=== PATIENT | female | born 1990 | race Caucasian/White ===

== ENCOUNTER 2017-09-29 07:51 | Inpatient (IN) | payer OTHER ==
[~2017-09-29] VITALS: Ht 160 cm; Wt 126.4 kg
[2017-09-29] MEDS ORDERED: LACTATED RINGER'S 1000ML 1,000 ML IV PRN (08:28)
[2017-09-29] MEDS ORDERED: LACTATED RINGER'S 1000ML 1,000 ML IV SCH ×2 (08:28→20:00)
[2017-09-29] MEDS ORDERED: DINOPROSTONE 10 MG INSERT PV ONE (08:30)
[2017-09-29] MEDS ORDERED: PENICILLIN G POTASSIUM IV 6 MU in DEXTROSE 5% 250ML 250 ML IV ONE (08:30)
[2017-09-29] MEDS ORDERED: PATIENT'S ALLERGY INFO NEEDS ENTERED SCH (08:45)
--- NOTE | 2017-09-29 08:54 | HISTORY & PHYSICAL EXAMINATION ---
DATE OF ADMISSION: 09/29/2017 CHIEF COMPLAINT: Scheduled induction of labor at term. HISTORY OF PRESENT ILLNESS: The patient is a 27-year-old G1, P0 at 39 weeks and 4 days of gestation who is presenting for scheduled induction of labor at term as recommended by maternal medicine due to class 3 obesity. She feels well. Denies headache, change in her vision, nausea, vomiting, epigastric or right upper quadrant pain. The patient denies fever, chills, chest pain, shortness of breath. The patient has been feeling irregular mild contractions for the last 2 weeks and cramps for the last 3 days, but they have not been painful and her cervix was found to be fingertip in the office and scheduled for induction for today. The patient denies leakage of fluid or vaginal bleeding. She reports good movements. Her has been complicated by: 1. Class 3 obesity, BMI 46 at new OB visit and delivery recommended by [facility] by MF. 2. GBS positive. PAST MEDICAL HISTORY: As above. The patient denies any other medical problems. She has a history of cardiac murmur as a child and she has seen cardiology and her echocardiogram was normal. No further workup or treatment recommended. PAST SURGICAL HISTORY: Tonsillectomy and cholecystectomy. SOCIAL HISTORY: The patient denies smoking, alcohol or drug use. GYNECOLOGIC HISTORY: The patient denies any history of STDs including Chlamydia, gonorrhea, herpes and this is her first . MEDICATIONS: vitamins and Tums as needed. ALLERGIES: CLARITHROMYCIN CAUSES NAUSEA, VOMITING. LABORATORIES: Blood type is B positive, antibody screen negative, hepatitis C antibody negative, rubella titer negative, HIV nonreactive, RPR nonreactive, hepatitis B surface antigen negative. H&H was 37. Platelets 330. Her hemoglobin A1c was 4.9. 24-hour urine protein was 153. Earlier Glucola was elevated at 153 mg/dL and 3-hour OGGT was within single abnormal level. Her repeat 3 hour OGGT at 28 weeks was negative. Repeat H&H was , platelets 230 and her GBS culture was positive on August 31. PHYSICAL EXAMINATION: BP: 137/93, Temp: 37.6 C, R: 20, Pulse: 90 GENERAL: The patient is alert, oriented x3, not in acute distress. CARDIOVASCULAR SYSTEM: S1, S2, RRR. LUNGS: Clear to auscultation bilaterally. ABDOMEN: Soft, gravid, no epigastric or right upper quadrant tenderness. EXTREMITIES: Nontender, trace pretibial and ankle edema. Reflexes 1+ and no clonus. Bedside ultrasound confirmed cephalic presentation. heart rate 140s. PELVIC: Cervix is fingertip, 50%, -3. heart rate 140s, category I. Suarez mild irregular contractions every 3-5 minutes. ASSESSMENT AND PLAN: The patient is a 27-year-old G1, P0 at 39 weeks and 4 days of gestation presenting for induction of labor at term for class 3 obesity. Vital signs stable, afebrile. heart rate reassuring. GBS positive. Plan is to admit her for induction of labor with cervical ripening Blood work, IV fluids and Cervidil for cervical ripening. The patient understands induction may take long time 1-3 days Understand the risks and benefits of cervical ripening. All questions were answered. ANT
[2017-09-29] MEDS ORDERED: BUTORPHANOL TARTRATE 1 MG/ML VIAL IV PRN (09:00)
[2017-09-29] MEDS ORDERED: CALCIUM CARBONATE 500 MG CHEWABLE PO PRN (09:00)
[2017-09-29 09:25] LABS: BASO % 0.2 %; BASO ABS # 0.03 K/uL (0-0.2); EOS % 1.5 %; EOS ABS # 0.18 K/uL (0-0.5); HEMATOCRIT 35.9 % (37-47); HEMOGLOBIN 12.3 g/dL (12.0-16.0); IG# 0.11 K/uL (0.00-0.02); LYMPH % 20.7 %; LYMPH ABS # 2.55 K/uL (1.2-3.4); MEAN CELL VOLUME 88.2 fL (80-100); MEAN CORPUSCULAR HEMOGLOBIN 30.2 pg (25-34); MEAN CORPUSCULAR HGB CONC 34.3 g/dl (32-36); MEAN PLATELET VOLUME 11.8 fL (7.4-10.4); MONO % 5.3 %; MONO ABS # 0.65 K/uL (0.11-0.59); NEUT % 71.4 %; NEUT ABS # 8.81 K/uL (1.4-6.5); PLATELET COUNT 209 K/uL (130-400); RED CELL DISTRIBUTION WIDTH CV 14.7 % (11.5-14.5); RED CELL DISTRIBUTION WIDTH SD 47.1 fL (36.4-46.3); WHITE BLOOD COUNT 12.33 K/uL (4.8-10.8)
[2017-09-29 09:56] LABS: ALBUMIN 2.8 gm/dl (3.4-5.0); ALT/SGPT 18 U/L (12-78); AST/SGOT 20 U/L (15-37); BLOOD UREA NITROGEN 8 mg/dl (7-18); CALCIUM 9.1 mg/dl (8.5-10.1); CARBON DIOXIDE 22 mmol/L (21-32); CREATININE 0.68 mg/dl (0.60-1.20); GLUCOSE 82 mg/dl (70-99); SODIUM 135 mmol/L (136-145)
[2017-09-29 09:59] LABS: ALKALINE PHOSPHATASE 162 U/L (45-117); TOTAL PROTEIN 7.5 gm/dl (6.4-8.2)
[2017-09-29 11:27] VITALS: Ht 160 cm; Wt 126.4 kg
[2017-09-29] MEDS ORDERED: PSEU30TA3 PO (11:34)
[2017-09-29] MEDS ORDERED: PRENTAB26 PO (11:34)
[2017-09-29] MEDS ORDERED: PENICILLIN G POTASSIUM IV 3 MU in DEXTROSE 5% 100ML 100 ML IV PRN (12:30)
[2017-09-29] MEDS ORDERED: TERBUTALINE SULFATE 1 MG/ML VIAL SQ ONE ×2 (14:30→15:30)
[2017-09-29] MEDS ORDERED: EpHEDrine SULFATE INJ 50 MG/ML AMP ONE (16:36)
[2017-09-29] MEDS ORDERED: FENTANYL 2MCG/ML ROPIV 1.25MG/ML 100ML BAG EPI ONE (16:36)
[2017-09-29] MEDS ORDERED: FENTANYL CITRATE INJ 50 MCG/1 ML 2 ML VIAL ONE (16:36)
[2017-09-29] MEDS ORDERED: BUPIVACAINE 0.25% 30 ML VIAL ONE (16:36)
[2017-09-29] MEDS ORDERED: LACTATED RINGER'S 1000ML 500 ML IV PRN (17:14)
[2017-09-29] MEDS ORDERED: NALOXONE HCL INJ 1 MG in SODIUM CHLORIDE 0.9% 1000ML 1,000 ML IV PRN (17:14)
[2017-09-29] MEDS ORDERED: FENTANYL 2MCG/ML ROPIV 1.25MG/ML 100ML BAG EPI PRN (17:15)
[2017-09-29] MEDS ORDERED: DiphenhydrAMINE HCL 50 MG/ML VIAL IV PRN (17:15)
[2017-09-29] MEDS ORDERED: EpHEDrine SULFATE INJ 50 MG/ML AMP IV PRN (17:15)
[2017-09-29] MEDS ORDERED: NALOXONE HCL INJ 0.4 MG/1 ML VIAL/CARP IV PRN (17:15)
[2017-09-29] MEDS ORDERED: ONDANSETRON INJ 2 MG/ML 2 ML VIAL IV PRN (17:15)
[2017-09-29] MEDS ORDERED: NALBUPHINE HCL INJ 10 MG/ML AMP IV PRN (17:15)
[2017-09-29] MEDS ORDERED: LACTATED RINGER'S 1000ML 1,000 ML IV ONE (17:33)
[2017-09-29] MEDS ORDERED: CITRIC ACID/SODIUM CITRATE 15 ML UDC ONE (17:37)
[2017-09-29] MEDS ORDERED: LIDOCAINE/EPINEPHRINE 2% 1:200,000 20 ML SDV ONE ×2 (17:40→18:02)
[2017-09-29] MEDS ORDERED: CEFAZOLIN IV 3,000 MG in SYRINGE 0 ML IV ONE (17:45)
[2017-09-29] MEDS ORDERED: CITRIC ACID/SODIUM CITRATE 15 ML UDC PO ONE (17:45)
[2017-09-29] MEDS ORDERED: ONDANSETRON INJ 2 MG/ML 2 ML VIAL ONE ×2 (17:48→18:32)
[2017-09-29] MEDS ORDERED: OXYTOCIN INJ 10 UNITS/ML VIAL ONE ×2 (17:48→18:10)
[2017-09-29] MEDS ORDERED: CEFAZOLIN SOD 1 GM VIAL ONE (17:49)
[2017-09-29] MEDS ORDERED: MoRPHine SULFATE PF 1 MG/ML 10 ML AMP/VIAL ONE (18:03)
[2017-09-29] MEDS ORDERED: PHENYLEPHRINE 100MCG/ML 5ML SYR ONE (18:05)
[2017-09-29] MEDS ORDERED: PHENYLEPHRINE HCL INJ 10 MG/ML VIAL ONE ×2 (18:07→18:40)
[2017-09-29] MEDS ORDERED: METHYLERGONOVINE MALEATE 0.2 MG/ML AMP IM STA (18:58)
[2017-09-29] MEDS ORDERED: BENZOCAINE 20% AER SPR 82.5 GM CAN EXT PRN (19:00)
[2017-09-29] MEDS ORDERED: MAGNESIUM HYDROXIDE SUSP 30 ML UDC PO PRN (19:00)
[2017-09-29] MEDS ORDERED: MEASLES, MUMPS & RUBELLA VIRUS VIAL SQ. ONE (19:00)
[2017-09-29] MEDS ORDERED: LANOLIN OINT EXT PRN (19:00)
[2017-09-29] MEDS ORDERED: HYDROCORTISONE ACETATE 25 MG SUPP PR PRN (19:00)
[2017-09-29] MEDS ORDERED: SENNA 8.6 MG TAB PO PRN (19:00)
[2017-09-29] MEDS ORDERED: SUPERCREAM 0.870 % 15GM JAR EXT PRN (19:00)
--- NOTE | 2017-09-29 19:00 | DIAGNOSTIC IMAGING REPORT ---
KUB CLINICAL HISTORY: Surgical instrument count. FINDINGS: 2 AP portable supine abdominal radiographs are obtained. No prior studies are available for comparison at the time of dictation. There is a nonobstructed abdominal bowel gas pattern. Linear metallic structures/wires project over the lower chest and upper abdomen. Cholecystectomy clips are noted. No additional radiodense/metallic foreign body is identified. No abnormal abdominal calcification is seen. The bony structures appear intact. IMPRESSION: 1. Linear metallic structures/wires project over the upper abdomen. Clinical correlation will be required. 2. No additional radiodense foreign body is suggested. 3. Nonobstructed bowel gas pattern. Electronically signed by: Anand Philip M.D. 09/29/2017 6:59 PM Dictated Date/Time: 09/29/2017 6:57 PM
[2017-09-29] MEDS ORDERED: MEPERIDINE HCL 25 MG/ML CARP IV PRN (19:15)
[2017-09-29] MEDS ORDERED: MoRPHine SULFATE PF 1 MG/ML 10 ML AMP/VIAL EPI PRN (19:15)
[2017-09-29] MEDS ORDERED: NO NARCOTICS OR SEDATIVES SCH (19:15)
[2017-09-29] MEDS ORDERED: CONTINUE MEDICATION ONE (19:15)
[2017-09-29] MEDS ORDERED: MoRPHine SULFATE 2 MG/ML CARP IV PRN (19:15)
[2017-09-29] MEDS: OXYTOCIN INJ 20 UNITS in LACTATED RINGER'S 1000ML 1,000 ML IV SCH (19:20)
--- NOTE | 2017-09-29 19:22 | [facility] Post Operative Brief Note ---
Immediate Operative Summary Operative Date Sep 29, 2017. Pre-Operative Diagnosis Intrauterine at 39.4 weeks. Emergency Caesarean Section for Distress. Post-Operative Diagnosis Same as Preop Procedure(s) Performed Live Female at [address] Falcon Goggles Assembler Surgeon(s) Dr. Medrano Estimated Blood Loss 800 ML Findings Viable female infant, apgars 8/9 Specimens Placenta (Exam) Cord Blood Cord Gases Drains chong 100 ml Anesthesia Epidural Complication(s) None Disposition L&D
[2017-09-29] MEDS: KETOROLAC TROMETHAMINE 30 MG/ML VIAL IV. PRN (19:56)
--- NOTE | 2017-09-29 20:07 | Anesthesiology Progress Note ---
Anesthesia Post Op Note Date & Time Sep 29, 2017 at 20:07 Vital Signs Pain Intensity: 4.0 Notes Mental Status: alert / awake / arousable, participated in evaluation Pt Amnestic to Procedure: Yes Nausea / Vomiting: adequately controlled Pain: adequately controlled Airway Patency, RR, SpO2: stable & adequate BP & HR: stable & adequate Hydration State: stable & adequate Neuraxial Anesthesia: was administered, sensory block is resolving Anesthetic Complications: no major complications apparent
[2017-09-29 21:25] VITALS: BP 134/84; PULSE 86; TEMP 36.4; O2SAT 99
[2017-09-29 22:00] VITALS: O2SAT 99
[2017-09-29] MEDS: DOCUSATE SODIUM 100 MG CAP PO SCH (22:41)
[2017-09-29] MEDS: SIMETHICONE 80 MG CHEW PO SCH (22:41)
[2017-09-29 23:30] VITALS: BP 125/87; PULSE 86; TEMP 36.8; O2SAT 99
--- NOTE | 2017-09-29 23:51 | OPERATIVE REPORT ---
DATE OF OPERATION: 09/29/2017 PREOPERATIVE DIAGNOSIS: The patient is a 27-year-old G1, P0, at 39 weeks and 4 days of gestation, 1) Scheduled induction of labor at term for class 3 obesity 2) Recurrent late decelerations, remote from delivery, 3) Vaginal bleeding, suggesting clinical abruption. POSTOPERATIVE DIAGNOSIS: Same. PROCEDURE: Primary low transverse with Pfannenstiel skin incision. SURGEON: Denver Dawson MD. RESERVOIR ENGINEERING MANAGER: Genia Medrano MD. ESTIMATED BLOOD LOSS: 800. SPECIMENS: Placenta. DRAINS: Roberto catheter drained 100 mL of urine. ANESTHESIA: Epidural, Dr. Keen. COMPLICATIONS: None. FINDINGS: Baby was a viable female infant delivered at 1802 p.m. Apgars 8/9. Weight was 3190 grams. Baby was in cephalic presentation. Maternal findings, normal uterus, fallopian tubes and ovaries. DETAILS OF DELIVERY: The patient is a 27-year-old G1, P0, at 39 weeks and 4 days of gestation, who was admitted on 09/29/2017 morning for induction of labor scheduled due to class 3 obesity. She received Cervidil for cervical ripening, it caused hyperstimulation of the uterus. She was given terbutaline injections x2 to relax the uterus. Finally, she stormed with bloody fluid and then heart rate had recurrent late decelerations with decreased variability and she was 3 cm, 60%, -3 with a coned head, and decision was made to proceed with delivery due to distress remote from delivery. See QS notes for details. The patient signed the informed consent. She was taken to the OR and she was placed in dorsal supine position with a leftward tilt. She was prepared and draped in usual sterile fashion and her epidural was found to be adequate for surgery. A Pfannenstiel skin incision was made with a scalpel and the incision was carried through to the underlying layer of fascia with Bovie. Fascia was incised in the midline and incision extended laterally with the help of Lopez scissors. Upper aspect of the fascial incision was then grasped with 2 Ole clamps, elevated, underlying rectus muscles were dissected off sharply and bluntly. Lower aspect of the fascial incision was grasped with 2 Ole clamps and elevated. Underlying rectus muscles were dissected off sharply with Lopez scissors and rectus muscles were in the midline and peritoneum was entered bluntly with the help of fingers. Peritoneal incision was extended superiorly and inferiorly with good visualization of the bladder and bladder blade was inserted and vesicouterine peritoneum was identified, grasped with pickups, entered sharply with Metzenbaum scissors. Bladder flap was created and bladder blade was reinserted. Lower uterine segment was incised in a transverse fashion and incision extended laterally with the help of fingers and membranes were ruptured. There was meconium stained fluid. Baby's head was delivered without difficulty. Shoulders were delivered with minimal traction. Baby's mouth and nose were suctioned, cord was clamped x2 and cut, it was a 3-vessel cord. Cord blood was obtained. The baby was handed off to the nurse of the pediatric team and placenta was delivered manually as intact and complete. It was found to be normal looking placenta with no signs of abruption. The uterus was exteriorized, cleared of all clots and debris, and the incision was repaired with 0 Vicryl in a running locked fashion and a second imbricating layer was placed with another 0 Vicryl in a running fashion and then there were some oozing points in the middle of the incision, they were controlled with [id number] stitches x3. Excellent hemostasis was achieved. Then, abdomen and pelvis were irrigated with warm normal saline and suctioned. Uterus was returned to the abdomen. Incision was checked to be hemostatic. The parietal peritoneum was reapproximated with 3-0 Vicryl in a running fashion. Rectus muscles were reapproximated with the same suture in a running fashion and rectus fascia was reapproximated with #1 Vicryl starting from both corners meeting in the midline in a running fashion. Subcuticular fat tissue was reapproximated with 3-0 Vicryl in a running fashion and skin was closed with 4-0 Monocryl in a subcuticular fashion. The patient tolerated the procedure well. Sponge, lap and needle counts were correct x3. At the end of the procedure, the patient had abdominopelvic x-ray due to unable to count large instruments before surgery due to emergency. The x-ray was negative for any foreign objects. The patient was taken to labor and delivery in stable condition and no complications happened and I was present during whole procedure. I attest to the content of the Intraoperative Record and any orders documented therein. Any exceptions are noted below. GEOVANYD
[2017-09-30] VITALS (15 sets, daily range): BP systolic 108–122; BP diastolic 72–80; PULSE 89–108; TEMP 36.8–37.2; O2SAT 97–100
[2017-09-30] MEDS: CEFAZOLIN IV 3,000 MG in SYRINGE 0 ML IV SCH ×3 (01:47→17:52)
[2017-09-30] MEDS: KETOROLAC TROMETHAMINE 30 MG/ML VIAL IV. PRN ×2 (01:47→09:38)
[2017-09-30] MEDS ORDERED: CEFAZOLIN IV 3,000 MG in DEXTROSE 5% 50ML 50 ML IV SCH ×2 (02:00→06:00)
[2017-09-30] MEDS: OXYTOCIN INJ 20 UNITS in LACTATED RINGER'S 1000ML 1,000 ML IV SCH ×2 (03:20→11:37)
[2017-09-30 06:15] LABS: BASO % 0.2 %; BASO ABS # 0.02 K/uL (0-0.2); EOS % 0.1 %; EOS ABS # 0.01 K/uL (0-0.5); HEMATOCRIT 29.6 % (37-47); HEMOGLOBIN 9.5 g/dL (12.0-16.0); IG# 0.04 K/uL (0.00-0.02); LYMPH % 17.2 %; MEAN CELL VOLUME 89.2 fL (80-100); MEAN CORPUSCULAR HEMOGLOBIN 28.6 pg (25-34); MEAN CORPUSCULAR HGB CONC 32.1 g/dl (32-36); MONO % 5.7 %; MONO ABS # 0.56 K/uL (0.11-0.59); NEUT % 76.4 %; NEUT ABS # 7.58 K/uL (1.4-6.5); PLATELET COUNT 177 K/uL (130-400); RED CELL DISTRIBUTION WIDTH CV 14.8 % (11.5-14.5); RED CELL DISTRIBUTION WIDTH SD 48.5 fL (36.4-46.3); WHITE BLOOD COUNT 9.91 K/uL (4.8-10.8)
--- NOTE | 2017-09-30 07:12 | OB/GYN Progress Note ---
SEAT COVER MAKER Progress Note Date of Service Sep 30, 2017. Subjective conversation w/ patient, physical exam Ambulation: ambulating normally Voiding: chong catheter in place Passing Gas: Yes Diet Tolerance: Clear Liquids Lochia: Moderate Feeding Type: Breast Feeding Pain: 3-4/10 Notes: Doing well. Pain well controlled. Tolerating liquids, +flatus, -BM. Incision dressing dry. Chong in place. Objective Vital Signs Date Time Temp Pulse Resp B/P (MAP) Pulse Ox O2 Delivery O2 Flow Rate FiO2 09/30/17 04:00 36.8 90 20 118/78 (91) 99 Room Air 09/30/17 03:30 18 99 09/30/17 02:30 18 100 09/30/17 01:30 18 98 09/30/17 00:30 18 99 09/29/17 23:30 36.8 86 18 125/87 (100) 99 Room Air 09/29/17 23:30 99 Room Air 09/29/17 23:30 18 99 09/29/17 22:00 20 99 09/29/17 21:25 99 Room Air 09/29/17 21:25 36.4 86 20 134/84 (101) Room Air 09/29/17 21:25 99 Room Air 09/29/17 21:25 20 99 Physical Exam General Appearance: WELL-APPEARING Respiratory/Chest: chest non-tender, lungs clear Cardiovascular: regular rate, rhythm Abdomen: normal bowel sounds, soft Fundus: Firm Incision Description: Clean, Dry & Intact Extremities: normal range of motion, non-tender, no calf tenderness Laboratory Results Last 24 Hours Test 09/29/17 08:47 09/30/17 06:05 White Blood Count 12.33 K/uL 9.91 K/uL Red Blood Count 4.07 M/uL 3.32 M/uL Hemoglobin 12.3 g/dL 9.5 g/dL Hematocrit 35.9 % 29.6 % Mean Corpuscular Volume 88.2 fL 89.2 fL Mean Corpuscular Hemoglobin 30.2 pg 28.6 pg Mean Corpuscular Hemoglobin Concent 34.3 g/dl 32.1 g/dl Platelet Count 209 K/uL 177 K/uL Mean Platelet Volume 11.8 fL 11.0 fL Neutrophils (%) (Auto) 71.4 % 76.4 % Lymphocytes (%) (Auto) 20.7 % 17.2 % Monocytes (%) (Auto) 5.3 % 5.7 % Eosinophils (%) (Auto) 1.5 % 0.1 % Basophils (%) (Auto) 0.2 % 0.2 % Neutrophils # (Auto) 8.81 K/uL 7.58 K/uL Lymphocytes # (Auto) 2.55 K/uL 1.70 K/uL Monocytes # (Auto) 0.65 K/uL 0.56 K/uL Eosinophils # (Auto) 0.18 K/uL 0.01 K/uL Basophils # (Auto) 0.03 K/uL 0.02 K/uL RDW Standard Deviation 47.1 fL 48.5 fL RDW Coefficient of Variation 14.7 % 14.8 % Immature Granulocyte % (Auto) 0.9 % 0.4 % Immature Granulocyte # (Auto) 0.11 K/uL 0.04 K/uL Sodium Level 135 mmol/L Potassium Level 4.0 mmol/L Chloride Level 105 mmol/L Carbon Dioxide Level 22 mmol/L Anion Gap 8.0 mmol/L Blood Urea Nitrogen 8 mg/dl Creatinine 0.68 mg/dl Estimated GFR () 139.9 Estimated GFR (Non- 120.7 BUN/Creatinine Ratio 12.0 Random Glucose 82 mg/dl Calcium Level 9.1 mg/dl Total Bilirubin 0.3 mg/dl Aspartate Amino Transf (AST/SGOT) 20 U/L Alanine Aminotransferase (ALT/SGPT) 18 U/L Alkaline Phosphatase 162 U/L Lactate Dehydrogenase 172 U/L Total Protein 7.5 gm/dl Albumin 2.8 gm/dl Globulin 4.7 gm/dl Albumin/Globulin Ratio 0.6 Assessment and Plan Post-Op Day Number: 1 Continue Routine Care: -D/C castillo this afternoon -Advance diet and activity as tolerated. -Continue routine postop care
[2017-09-30] MEDS: FERROUS SULFATE 325 MG TAB PO SCH (08:04)
[2017-09-30] MEDS: PRENATAL VITAMIN TAB PO SCH (08:04)
[2017-09-30] MEDS: DOCUSATE SODIUM 100 MG CAP PO SCH ×2 (08:04→20:49)
[2017-09-30] MEDS: SIMETHICONE 80 MG CHEW PO SCH ×4 (08:05→20:49)
[2017-09-30] MEDS ORDERED: DiphenhydrAMINE HCL 50 MG/ML VIAL IV PRN (12:00)
[2017-09-30] MEDS ORDERED: DC INTRASPINAL MORPHINE ONE (12:00)
[2017-09-30] MEDS ORDERED: KETOROLAC TROMETHAMINE 30 MG/ML VIAL IV. PRN (12:00)
[2017-09-30] MEDS ORDERED: PROMETHAZINE HCL INJ 25 MG in SODIUM CHLORIDE 0.9% 50ML 50 ML IV PRN (12:00)
[2017-09-30] MEDS ORDERED: ONDANSETRON INJ 2 MG/ML 2 ML VIAL IV PRN (12:00)
[2017-09-30] MEDS ORDERED: OXYCODONE/ACETAMINOPHEN 5-325 TAB PO PRN (12:00)
[2017-09-30] MEDS ORDERED: MEPERIDINE HCL 50 MG/ML CARP IV PRN ×2 (12:00)
[2017-09-30] MEDS ORDERED: BISACODYL 5 MG TABEC PO ONE (22:00)
[2017-09-30] MEDS: IBUPROFEN 600 MG TAB PO PRN (23:40)
[2017-10-01] VITALS: BP 131/83; PULSE 123; TEMP 36.8
--- NOTE | 2017-10-01 07:53 | Surgery Progress Note ---
Surgery Progress Note Date of Service Oct 01, 2017. Subjective + feeling well, + ambulating, + flatus, + pain controlled Objective Vital Signs: Date Time Temp Pulse Resp B/P (MAP) Pulse Ox O2 Delivery O2 Flow Rate FiO2 10/01/17 00:00 Room Air 10/01/17 00:00 36.8 123 18 131/83 09/30/17 20:10 36.9 108 18 122/80 (94) 99 Room Air 09/30/17 15:34 20 97 09/30/17 15:34 Room Air 09/30/17 15:34 37.0 103 20 121/77 (92) 97 Room Air 09/30/17 15:17 18 09/30/17 13:31 20 100 09/30/17 12:28 20 99 09/30/17 11:39 18 100 09/30/17 11:39 37.1 97 113/74 (87) 09/30/17 10:33 20 99 09/30/17 09:31 20 100 09/30/17 08:51 18 98 Abdomen: non tender, soft Incision(s): clean, dry, intact Extremities: non-tender, normal inspection, no pedal edema Assessment & Plan regular diet POD#1 advance care
[2017-10-01] MEDS: PRENATAL VITAMIN TAB PO SCH (08:56)
[2017-10-01] MEDS: DOCUSATE SODIUM 100 MG CAP PO SCH ×2 (08:56→20:11)
[2017-10-01] MEDS: FERROUS SULFATE 325 MG TAB PO SCH (08:56)
[2017-10-01] MEDS: IBUPROFEN 600 MG TAB PO PRN ×3 (08:57→17:00)
[2017-10-01] MEDS: OXYCODONE/ACETAMINOPHEN 5-325 TAB PO PRN ×3 (08:58→17:00)
[2017-10-01] MEDS: SIMETHICONE 80 MG CHEW PO SCH ×4 (08:58→20:11)
[2017-10-01 09:00] VITALS: BP 119/84; PULSE 102; TEMP 36.7
[2017-10-01 15:55] VITALS: O2SAT 98
[2017-10-01] MEDS ORDERED: BISACODYL 10 MG SUPP PR PRN (19:00)
[2017-10-01 23:30] VITALS: BP 124/84; PULSE 114; TEMP 36.7
[2017-10-02] MEDS: IBUPROFEN 600 MG TAB PO PRN ×2 (00:37→08:22)
[2017-10-02] MEDS: OXYCODONE/ACETAMINOPHEN 5-325 TAB PO PRN ×2 (00:37→08:22)
[2017-10-02 08:15] VITALS: BP 129/87; PULSE 112; TEMP 36.9
[2017-10-02] MEDS: SIMETHICONE 80 MG CHEW PO SCH (08:21)
[2017-10-02] MEDS: DOCUSATE SODIUM 100 MG CAP PO SCH (08:22)
[2017-10-02] MEDS: FERROUS SULFATE 325 MG TAB PO SCH (08:22)
[2017-10-02] MEDS: PRENATAL VITAMIN TAB PO SCH (08:22)
--- NOTE | 2017-10-02 09:02 | Surgery Progress Note ---
Surgery Progress Note Date of Service Oct 02, 2017. Subjective Post OP Day: 3 + feeling well, + ambulating, + pain controlled, + diet (PO food and meds), No complaints, No chest pain, No flatus, No using HANDKERCHIEF PRESSER, No nausea, No vomiting Objective Vital Signs: Date Time Temp Pulse Resp B/P (MAP) Pulse Ox O2 Delivery O2 Flow Rate FiO2 10/01/17 23:30 Room Air 10/01/17 23:30 36.7 114 16 124/84 10/01/17 15:55 98 Room Air Head: normocephalic, atraumatic Neck: supple, no adenopathy, thyroid normal, no JVD, no carotid bruits, trachea midline Respiratory/Chest: chest non-tender, lungs clear, normal breath sounds, no respiratory distress, no accessory muscle use Cardiovascular: regular rate, rhythm, no edema, no gallop, no JVD, no murmur Incision(s): clean, dry, intact, no erythema, no drainage Extremities: normal range of motion, non-tender, normal inspection, no pedal edema, no calf tenderness, normal capillary refill, pelvis stable Assessment & Plan c/sec day #3 pt doing well disch home with instructions
[2017-10-02] MEDS ORDERED: OXYC-57 PO (09:05)
[2017-10-02] MEDS ORDERED: CLC100 PO (09:05)
[2017-10-02] MEDS ORDERED: FRRS300 PO (09:05)
[2017-10-02] MEDS ORDERED: MTR600X PO (09:05)
--- NOTE | 2017-10-02 09:06 | Discharge Instructions ---
Discharge Instructions Date of Service Oct 02, 2017. Admission Reason for Admission: Induction Discharge Discharge Diagnosis / Problem: postop Discharge Goals Goal(s): Routine recovery after Activity Recommendations Activity Limitations: as noted below ACTIVITY RECOMMENDATIONS: * Gradual return to full activity over the next 2-3 weeks. * No lifting - nothing heavier than baby over the next 2-3 weeks. * Do not engage in vigorous exercise, sexual activity or sports until cleared by your physician. * Do not drive or operate any motorized equipment until cleared by your physician. * You may shower/bathe daily. BREAST CARE: If you are not breast feeding: * Wear a supportive bra 24 hours a day for one to two weeks. * Avoid stimulating your breasts and nipples as much as possible during the first few weeks after delivery. * When taking a shower, have the warm water hit your back, not breasts. * When your breasts feel full, apply ice packs. Usually three to four times a day helps ease the discomfort. * Take a mild pain medication (Tylenol/Motrin) when you are uncomfortable. If breast feeding: * Use breast milk to lubricate nipples. Lansinoh cream may be used for sore nipples. You do not need to remove cream prior to breast feeding. If using a different brand of cream, check the label for directions regarding removal of cream prior to nursing. * Wear a supportive bra. * If having problems with breasts or breast feeding, call a engagement quality consultant or your health care provider. OVER THE COUNTER MEDICATION: * For discomfort or pain, you may use Acetaminophen (Tylenol), Ibuprofen (Advil ), or Naproxen (Aleve) following the package directions. * For constipation you may use Colace following the package directions. SPECIAL CARE INSTRUCTIONS: When you are discharged from the hospital, it is important for you to follow the instructions listed below: * During the first week at home, you should be able to care for yourself and your baby. In addition, the usual light household activities are encouraged. * Limit your activities to the way you feel. Do not try to clean the house or move furniture. Be sensible. * If you actively engage in sports and have done so up until the time of your delivery, you may resume these activities as soon as you feel able. This may take up to one month or even longer. Use good judgment. * Continue to take your vitamins for at least six weeks after the of your baby. * Your diet need not be limited unless you were on a special diet before your delivery. Breast-feeding mothers need around 2500 calories per day and at least 64-80 ounces of fluid per day (8 to 10 glasses). * You should eat foods from the four major food groups. Crash diets or fad diets are to be avoided. Eating lean meats, fresh fruits and vegetables, low-fat dairy products, high fiber foods and a regular exercise program, will help you get back to your pre- weight without putting your health at risk. * Constipation is sometimes a problem after delivery. Take a mild laxative as needed. If breast feeding, Milk of Magnesia is acceptable to use. You may use a suppository or Fleets enema if no episiotomy. * A daily shower or tub bath is suggested. Be sure to thoroughly and gently dry the perineum. * A bloody vaginal discharge will usually continue until around four weeks post . A small amount of bleeding may continue for as long as six weeks. Vaginal discharge changes from the bright red bleeding after delivery to pink then brownish and finally yellowish-pink before becoming white and disappearing. * Bleeding may increase with activity. Your first period may come in 4-8 weeks. If you are breast feeding, your period may be delayed even longer. * [place] (sex) can begin whenever both you and your partner feel comfortable and do not have any form of genital infection. It is recommended that you wait at least six weeks for internal and external healing to occur. If you have questions, please talk to your health care practitioner. A condom should be used to prevent infection and . * Foreplay, gentle intercourse and lubrication is very important the first several times to prevent pain. A water-based lubricant such as K-Y jelly or Astroglide may be used. * Tampons and/or Douching should be avoided until after six weeks check-up. * If you have RH negative blood and your baby is RH positive, you will receive RHOGAM by injection prior to discharge. The nurse will give you a card to keep with you that has the date and place that you received RHOGAM after delivery. * During your care, you had a Rubella screen done to check for the presence of rubella antibodies in your blood. If your test was negative, you will receive a Rubella vaccine prior to discharge. This vaccine may cause a fever, soreness at the injection site and flu-like symptoms. If these symptoms persist, notify your health care practitioner. is not advised for three months after a Rubella vaccine. * Verbalizes understanding of car seat law as reviewed with patient nursing. * Car Seat hand-out given and reviewed with patient by nursing. * Shaken baby information reviewed with patient by nursing. Call you doctor if: * Heavy bleeding (saturating several pads an hour) or passing clots the size of your fist. * A fever >101 degrees F (38.3 degrees C) on two occasions four hours apart and /or chills. * Unusual pain in the pelvic or vaginal areas. Pain should improve each day . * Call the doctor for any increased redness, drainage or swelling around the incision and any pain unrelieved by prescribed pain medication. * Any signs or symptoms of phlebitis (possible blood clots forming in the veins ): leg pain, warm, red or swollen area on leg. * "Baby Blues" lasting longer than two weeks. If you have any questions or concerns, call your health care practitioner at . FOLLOW-UP VISIT: * Incision check (staple removal) in 1 week. Please call doctor's office at to set up appointment. * Please call the office at to schedule a 6 week examination. It is important you keep this appointment. * It is important for you to make arrangements for either yearly or twice yearly check-ups thereafter. . Current Hospital Diet Patient's current hospital diet: Regular OB Diet Discharge Diet Recommended Diet: Regular Diet Procedures Procedures Performed: Live Female at 1802 Pending Studies Studies pending at discharge: no Medical Emergencies . Who to Call and When: Medical Emergencies: If at any time you feel your situation is an emergency, please call [phone] immediately. . Non-Emergent Contact Non-Emergency issues call your: Specialist . . "Provider Documentation" section prepared by Smith Randle. . VTE Core Measure Inpt VTE Proph given/why not?: Treatment not indicated
[2017-10-02 11:50] VITALS: BP_DIAS 87; PULSE 112; TEMP 36.9
--- NOTE | 2017-10-03 19:02 | DISCHARGE SUMMARY ---
DETAILS OF ADMISSION: The patient is a 27-year-old G1, P0 at 39 weeks and 4 days of gestation who was admitted on 09/29/2017 for scheduled induction of labor at term due to class 3 obesity per [facility] recommendation. She received Cervidil for cervical ripening, it caused hyperstimulation of the uterus. She was given terbutaline injection x2 to relax the uterus. Finally she started to have vaginal bleeding with recurrent late heart rate decelerations. Decision was made to proceed with delivery. See dictated OP note for details. She delivered a viable female infant on 09/29/2017 at 6:02 p.m. Apgars were 8 and 9. On postop day #1, the patient was doing well. Vital signs stable, afebrile. Urine output was good and she was passing gas. She was advanced to regular diet and Roberto was discontinued. She ambulated, voided and her physical exam was unremarkable. Incision was clean, dry and intact. H&H was 9.5/29.6. On postop day #2, the patient was doing well, passing gas, moving her bowels and tolerate a regular diet. Vital signs stable, afebrile. Physical exam was within normal limits. Incision clean, dry and intact. On postop day #3, the patient was doing well. Pain was under control with oral meds. No complaints. She wanted to go home. Vital signs were stable and physical exam was unremarkable. Incision was clean, dry and intact. She was discharged home by Dr. Randle on 10/02/2017. Instructions were given when to call, prescriptions were written for pain and all the questions were answered. ANT
== END 2017-10-02 12:45 | disposition home or self-care (01) | DRG 765 ==
LOC: C.LD 07:51 → C.OBG 21:36
PROVIDERS: ADMIT Obstetrics & Gynecology; ATTEND Obstetrics & Gynecology
PROC: 3E0P7GC Introduction of Other Therapeutic Substance into Female Reproductive, Via Natural or Artificial Opening (ICD-10-PCS; 2017-09-29)
PROC: 10D00Z1 Extraction of Products of Conception, Low, Open Approach (ICD-10-PCS; principal; 2017-09-29 18:11)
DX: O76 Abnormality in fetal heart rate and rhythm complicating labor and delivery (principal); O45.93 Premature separation of placenta, unspecified, third trimester; Z68.42 Body mass index [BMI] 45.0-49.9, adult; O99.214 Obesity complicating childbirth; O99.824 Streptococcus B carrier state complicating childbirth; Z37.0 Single live birth; Z3A.39 39 weeks gestation of pregnancy

== ENCOUNTER 2020-06-28 12:31 | Inpatient (IN) ==
[2020-06-28] MEDS ORDERED: MoRPHine SULFATE PF 1 MG/ML 10 ML AMP/VIAL ONE (14:20)
[2020-06-28 14:24] LABS: Basophils # (auto) 0.02 K/uL (0-0.2); Basophils % (auto) 0.2 %; Eosinophils % (auto) 0.9 %; Hematocrit (blood only) 38.3 % (37-47); Hemoglobin 12.2 g/dL (12.0-16.0); Immature Granulocytes # (auto) 0.08 K/uL (0.00-0.02); Immature Granulocytes % (auto) 0.7 %; Lymphocytes # (auto) 1.75 K/uL (1.2-3.4); Lymphocytes % (auto) 15.7 %; Mean Corpuscular Hemoglobin 26.9 pg (25-34); Mean Corpuscular Volume 84.4 fL (80-100); Mean Platelet Volume 11.9 fL (7.4-10.4); Monocytes # (auto) 0.57 K/uL (0.11-0.59); Monocytes % (auto) 5.1 %; Neutrophils # (auto) 8.64 K/uL (1.4-6.5); Neutrophils % (auto) 77.4 %; Platelet Count 173 K/uL (130-400); RDW Coefficient of Variation 14.5 % (11.5-14.5); RDW Standard Deviation 44.4 fL (36.4-46.3); Red Blood Count 4.54 M/uL (4.2-5.4); White Blood Count 11.16 K/uL (4.8-10.8)
[2020-06-28] MEDS ORDERED: CITRIC ACID/SODIUM CITRATE 15 ML UDC PO SCH (14:30)
--- NOTE | 2020-06-28 14:36 | Anesthesiology Consultation ---
Date of Service June 28, 2020 Assessment & Plan (1) Encounter for pre-operative examination: Chart Review Chart Review: Acceptable Risk for Surgery (Urgent due to jacques and prior c section) History Height/Weight Height: 5 ft 2.75 in Weight: 130.72 kg Allergies Allergy/AdvReac Type Severity Reaction Status Date / Time bupropion [From Wellbutrin] Allergy Hives Verified 06/28/20 12:53 clarithromycin AdvReac Mild Vomiting Verified 11/22/19 22:06 Medications Home Medications Medication Instructions Recorded Confirmed Last Taken PNV cmb#95-ferrous fumarate-FA 1 tab PO QAM 11/22/19 06/28/20 06/27/20 [] insulin detemir U-100 [Levemir 16 unit SUBCUT HS 06/27/20 06/28/20 06/27/20 U-100 Insulin] calcium carbonate [Tums 500] 500 mg PO TID 06/28/20 06/28/20 06/27/20 ferrous sulfate 325 mg PO DAILY 06/28/20 06/28/20 06/27/20 omeprazole 20 mg PO DAILY 06/28/20 06/28/20 06/27/20 NPO Date Last Intake of Fluids: 06/28/20 Time Last Intake of Fluids: 10:00 Date Last Intake of Solids: 06/28/20 Time Last Intake of Solids: 10:00 Past Medical History Medical History Anxiety Depression Gestational diabetes Leaky heart valve A CHILD, NO CURRENT ISSUES No pertinent past medical history Past Surgical History Surgical History History of cholecystectomy History of tonsillectomy History of wisdom tooth extraction Hx of section Social History Smoking Status: Never smoker Hx Alcohol Use: No Hx Substance Use: No substance use type: does not use Physical Exam Vital Signs Last Vital Signs Pulse 93 H 06/28/20 13:47 BP 137/82 06/28/20 13:47 Testing Laboratory Results 06/28/20 14:16
[2020-06-28 14:39] LABS: Mean Corpuscular Hgb Conc 31.9 g/dL (32-36)
[2020-06-28] MEDS ORDERED: LACTATED RINGER'S 1,000 ML IV SCH ×2 (15:30→17:15)
[2020-06-28] MEDS ORDERED: ONDANSETRON INJ 2 MG/ML 2 ML VIAL IV PRN (15:45)
[2020-06-28] MEDS ORDERED: ePHEDrine sulfate 50 MG/ML AMP IV PRN (15:45)
[2020-06-28] MEDS ORDERED: diphenhydrAMINE 50 MG/ML VIAL IV PRN (15:45)
[2020-06-28] MEDS ORDERED: NALOXONE HCL 0.4 MG/1 ML VIAL/CARP IV PRN (15:45)
[2020-06-28] MEDS ORDERED: NO NARCOTICS OR SEDATIVES SCH (15:45)
[2020-06-28] MEDS ORDERED: NALOXONE HCL 0.08 MG in SYRINGE 1.8 ML IV PRN (15:45)
[2020-06-28] MEDS ORDERED: MoRPHine SULFATE PF 1 MG/ML 10 ML AMP/VIAL INT SPINAL ONE (15:45)
[2020-06-28] MEDS ORDERED: SODIUM CHLORIDE 0.9% 1000ML 1,000 ML IV SCH (15:45)
[2020-06-28] MEDS ORDERED: PROMETHAZINE HCL 12.5 MG in SODIUM CHLORIDE 0.9% 50 ML IV PRN (15:45)
[2020-06-28] MEDS ORDERED: LACTATED RINGER'S 500 ML IV PRN (15:45)
[2020-06-28] MEDS ORDERED: NALOXONE HCL 1 MG in SODIUM CHLORIDE 0.9% 1000ML 1,000 ML IV PRN (15:45)
[2020-06-28] MEDS ORDERED: MEPERIDINE HCL 25 MG/ML CARP/VIAL IV PRN (15:45)
[2020-06-28] MEDS ORDERED: DC INTRASPINAL MORPHINE SCH (15:45)
[2020-06-28] MEDS ORDERED: METOCLOPRAMIDE HCL INJ 5 MG/ML 2 ML VIAL ONE (15:52)
[2020-06-28] MEDS ORDERED: OXYTOCIN 10 UNITS/ML VIAL ONE ×3 (15:52→16:35)
[2020-06-28] MEDS ORDERED: PROPOFOL IV EMULSION 10 MG/ML 20 ML VIAL IV ONE (15:52)
[2020-06-28] MEDS ORDERED: ONDANSETRON INJ 2 MG/ML 2 ML VIAL ONE (15:52)
[2020-06-28] MEDS ORDERED: LIDOCAINE HCL 2% MPF (LOCAL) 5 ML VIAL INFIL ONE (15:52)
[2020-06-28] MEDS ORDERED: ePHEDrine sulfate 50 MG/ML SYR ONE (15:52)
[2020-06-28] MEDS ORDERED: PHENYLEPHRINE 100MCG/ML 5ML SYR ONE (15:52)
[2020-06-28] MEDS ORDERED: DIPHTHERIA/TETANUS/PERTUSSIS 0.5 ML SYR/VIAL IM ONE (17:13)
[2020-06-28] MEDS ORDERED: SENNA 8.6 MG TAB PO PRN (17:13)
[2020-06-28] MEDS ORDERED: HYDROCORTISONE ACETATE 25 MG SUPP PR PRN (17:13)
[2020-06-28] MEDS ORDERED: BENZOCAINE 20% AER SPR 82.5 GM CAN EXT PRN (17:13)
[2020-06-28] MEDS ORDERED: MAGNESIUM HYDROXIDE SUSP 30 ML UDC PO PRN (17:13)
[2020-06-28] MEDS ORDERED: SUPERCREAM 0.870% 15 GM JAR EXT PRN (17:13)
[2020-06-28] MEDS ORDERED: OXYTOCIN 20 UNITS in LACTATED RINGER'S 1,000 ML IV SCH (17:15)
--- NOTE | 2020-06-28 17:18 | Post Operative Brief Note ---
Immediate Post Op Note v1 Date of Surgery June 28, 2020 Pre & Post Diagnosis Operation Date: 06/28/20 15:00 Pre-Op Diagnosis: Intrauterine pregancy. Desires repeat ceasarean section and permanent sterilization. Post-Op Diagnosis: same I identified the patient and participated in the time-out.: Yes Procedure Operation Date: 06/28/20 15:00 Actual Procedures p section with delivery of live male infant at 1558(Bilateral) - Smith Randle MD s Tubal Ligation Labor & Deliv(Bilateral) - Smith Randle MD Surgeon Smith Randle MD Policeman Dr Camacho Estimated Blood Loss 700 Findings Consistent with Post-Op Diagnosis Drains Roberto Catheter
[2020-06-28] MEDS: KETOROLAC 30 MG/ML VIAL IV PRN (17:40)
--- NOTE | 2020-06-28 19:21 | Operative Report (OR) ---
DATE OF OPERATION: 06/28/2020 INDICATION FOR SURGERY: This is a 30-year-old G2, P1, prior section who presents to labor and delivery in labor. The patient wishes to have a and bilateral tubal ligation. PREOPERATIVE DIAGNOSES: 1. at term. 2. Previous section. 3. Undesired fertility. POSTOPERATIVE DIAGNOSES: 1. at term. 2. Previous section. 3. Undesired fertility. SURGEON: Smith Randle MD. SEMICONDUCTOR WAFER INSPECTOR: Dr. Camacho. ANESTHESIA: Spinal. ANESTHESIOLOGIST: Dr. Carson is attending for anesthesia. PROCEDURES: 1. Repeat section. 2. Bilateral tubal ligation. ESTIMATED BLOOD LOSS: 700 mL. INTRAVENOUS FLUIDS: 3800 mL. URINE OUTPUT: 70 mL of clear urine. COMPLICATIONS: None. DRAINS: Roberto catheter. PATHOLOGY: Left and right fallopian tubes and placenta. DISPOSITION: Stable to recovery room. FINDINGS: Live in occiput anterior presentation. Weight and Apgars in pediatric record. Uterus, tubes, and adnexa otherwise appeared grossly normal. DESCRIPTION OF PROCEDURE: The patient was taken to the operating room where she was prepped and draped in normal sterile fashion. Timeout was called. A Pfannenstiel incision was made and carried down through the old scar to the fascia with scalpel, incised in the midline and extended laterally on both sides with Lopez scissors. Superior and inferior part of the fascia was dissected off the rectus abdominis muscle. Peritoneum was identified and entered sharply. Once inside the abdomen, an Henry retractor was placed in the abdomen for retraction. Vesicouterine peritoneum was sharply dissected off the lower segment of the uterus. Transverse incision was made in the uterus, extended laterally on both sides with bandage scissors. Infant was delivered. Cord was clamped and cut and handed over to the pediatric team. Details of infant is in the pediatric records. Cord blood was obtained. Placenta was spontaneously delivered. Uterus was exteriorized and cleared of all clots and debris. Uterus was closed in 2 layers using Vicryl stitch. There was good hemostasis post-closure. Attention is paid to the tubal ligation part of the procedure. Left and right fallopian tubes were identified and followed to their fimbriated end. This was confirmed by both surgeon and assistant housekeeping manager. Modified Kent tubal ligation was performed. The tubes were transected and sutures were used to obtain hemostasis. Both tubes are sent to the pathology for pathological analysis. There was good hemostasis post-tubal ligation. Copious amount of irrigation was used to irrigate the abdomen. Uterus was returned to the abdominal cavity. Once again, hemostasis was established. Peritoneum was closed in a running fashion using plain suture. Fascia was closed in a running fashion using PDS suture. SubQ space was irrigated and approximated using plain suture and skin was closed with dane. All instruments were removed from the abdomen and accounted for x2 including sponges, needles and retractors. Baby and mother are doing well and sent to recovery in stable condition. I attest to the content of the Intraoperative Record and any orders documented therein. Any exception s are noted below.
--- NOTE | 2020-06-28 20:34 | Anesthesiology Progress Note ---
Date of Service June 28, 2020 Anesthesia Post Procedure Vital Signs Vital Signs: Temp Pulse Resp BP Pulse Ox 06/28/20 19:29 91 H 100 06/28/20 19:24 91 H 99 06/28/20 19:19 84 100 06/28/20 19:15 36.9 C 20 06/28/20 19:14 85 100 06/28/20 19:13 82 118/54 L 06/28/20 19:09 88 100 06/28/20 19:04 84 100 06/28/20 19:03 78 118/55 L 06/28/20 18:59 83 100 06/28/20 18:55 18 06/28/20 18:54 83 100 06/28/20 18:49 84 100 06/28/20 18:44 75 100 06/28/20 18:43 78 99/57 L 06/28/20 18:39 75 100 06/28/20 18:34 79 100 06/28/20 18:33 68 104/59 L 06/28/20 18:29 92 H 100 06/28/20 18:25 68 104/56 L 06/28/20 18:24 71 100 06/28/20 18:19 77 100 06/28/20 18:14 84 100 06/28/20 18:13 36.4 C L 16 06/28/20 18:09 78 100 06/28/20 18:04 73 100 06/28/20 18:03 65 16 108/58 L 06/28/20 17:59 74 100 06/28/20 17:54 78 100 06/28/20 17:53 80 16 118/54 L 06/28/20 17:49 81 100 06/28/20 17:44 82 100 06/28/20 17:43 79 16 108/82 06/28/20 17:39 91 H 100 06/28/20 17:34 71 100 06/28/20 17:33 76 16 104/54 L 06/28/20 17:29 77 100 06/28/20 17:24 94 H 97 06/28/20 17:23 78 16 112/55 L 06/28/20 17:19 84 99 06/28/20 17:14 83 99 06/28/20 17:13 36.4 C L 82 18 117/59 L 06/28/20 14:54 37.0 C 105 H 20 132/81 06/28/20 13:47 93 H 137/82 06/28/20 13:41 101 H 140/102 H 06/28/20 13:27 104 H 156/87 H 06/28/20 13:22 102 H 153/92 H 06/28/20 13:16 100 H 143/80 H 06/28/20 13:13 114 H 146/87 H 06/28/20 12:52 108 H 124/93 Pain Intensity Lower Abdomen: Pain Intensity: 2 Transfer of Care Handoff Completed per policy Notes Mental Status: alert / awake / arousable Patient Amnestic to Procedure: Yes Nausea / Vomiting: adequately controlled Pain: adequately controlled Airway Patency, RR, SpO2: stable & adequate BP & HR: stable & adequate Hydration State: stable & adequate Neuraxial Anesthesia: was administered and sensory block is resolving Anesthetic Complications: no major complications apparent
[2020-06-28] MEDS: SIMETHICONE 80 MG CHEW PO SCH (21:25)
[2020-06-28] MEDS: DOCUSATE SODIUM 100 MG CAP PO SCH (21:25)
[2020-06-28] MEDS ORDERED: LACTATED RINGER'S 1,000 ML IV ONE (22:16)
[2020-06-29 06:56] LABS: Hematocrit (blood only) 27.4 % (37-47); Hemoglobin 8.9 g/dL (12.0-16.0); Mean Corpuscular Hemoglobin 27.6 pg (25-34); Mean Corpuscular Hgb Conc 32.5 g/dL (32-36); Mean Corpuscular Volume 84.8 fL (80-100); Mean Platelet Volume 11.8 fL (7.4-10.4); Platelet Count 130 K/uL (130-400); RDW Coefficient of Variation 14.4 % (11.5-14.5); RDW Standard Deviation 43.4 fL (36.4-46.3); Red Blood Count 3.23 M/uL (4.2-5.4); White Blood Count 8.63 K/uL (4.8-10.8)
[2020-06-29 07:18] LABS: Basophils # (auto) 0.01 K/uL (0-0.2); Basophils % (auto) 0.1 %; Eosinophils # (auto) 0.02 K/uL (0-0.5); Eosinophils % (auto) 0.2 %; Immature Granulocytes # (auto) 0.03 K/uL (0.00-0.02); Immature Granulocytes % (auto) 0.3 %; Lymphocytes # (auto) 1.26 K/uL (1.2-3.4); Lymphocytes % (auto) 14.6 %; Microcytosis Present; Monocytes # (auto) 0.42 K/uL (0.11-0.59); Monocytes % (auto) 4.9 %; Neutrophils # (auto) 6.89 K/uL (1.4-6.5); Neutrophils % (auto) 79.9 %
[2020-06-29] MEDS: KETOROLAC 30 MG/ML VIAL IV PRN (07:51)
[2020-06-29] MEDS: FERROUS SULFATE 325 MG TAB PO SCH (07:52)
[2020-06-29] MEDS: DOCUSATE SODIUM 100 MG CAP PO SCH ×2 (07:52→21:36)
[2020-06-29] MEDS: PRENATAL VITAMIN 1 TAB PO SCH (07:52)
[2020-06-29] MEDS: SIMETHICONE 80 MG CHEW PO SCH ×4 (07:52→21:37)
--- NOTE | 2020-06-29 09:38 | Surgery Progress Note ---
Date of Service June 29, 2020 Assessment & Plan Admission and Anticipated Discharge Date Admission Date: June 28, 2020 Subjective POD#1 doing well stable vss not passing gas yet still in bed Physical Exam Constitutional: WD/WN, vitals as above comfortable no edema neg Gale's abdomen soft and non-tender incision c/d/i will increase care and activity Results & Data ([facility]) Vital Signs (Past 12 Hours) Vital Signs Temp Pulse Resp BP Pulse Ox Pulse Ox 06/29/20 08:35 36.9 C 101 H 18 103/69 97 97 06/29/20 06:36 18 96 06/29/20 05:30 18 96 06/29/20 04:30 18 96 06/29/20 03:48 18 95 06/29/20 03:07 36.5 C 115 H 18 97/62 L 96 06/29/20 02:25 18 98 06/29/20 01:30 18 97 06/29/20 00:30 18 96 06/28/20 23:35 36.5 C 108 H 18 103/71 96 06/28/20 22:27 18 99 Laboratory Results 06/28/20 06/28/20 06/28/20 14:16 14:16 14:57 WBC 11.16 H RBC 4.54 Hgb 12.2 Hct 38.3 MCV 84.4 MCH 26.9 MCHC 31.9 L RDW Std Deviation 44.4 RDW Coeff of Lars 14.5 Plt Count 173 MPV 11.9 H Immature Gran % (Auto) 0.7 Neut % (Auto) 77.4 Lymph % (Auto) 15.7 [place] % (Auto) 5.1 Eos % (Auto) 0.9 Baso % (Auto) 0.2 Neut # (Auto) 8.64 H Lymph # (Auto) 1.75 [place] # (Auto) 0.57 Eos # (Auto) 0.10 Baso # (Auto) 0.02 Immature Gran # (Auto) 0.08 H Microcytosis POC Glucose 80 Blood Type B Positive Antibody Screen NEGATIVE 06/29/20 06:19 WBC 8.63 RBC 3.23 L Hgb 8.9 L D Hct 27.4 L MCV 84.8 MCH 27.6 MCHC 32.5 RDW Std Deviation 43.4 RDW Coeff of Lars 14.4 Plt Count 130 MPV 11.8 H Immature Gran % (Auto) 0.3 Neut % (Auto) 79.9 Lymph % (Auto) 14.6 [place] % (Auto) 4.9 Eos % (Auto) 0.2 Baso % (Auto) 0.1 Neut # (Auto) 6.89 H Lymph # (Auto) 1.26 [place] # (Auto) 0.42 Eos # (Auto) 0.02 Baso # (Auto) 0.01 Immature Gran # (Auto) 0.03 H Microcytosis Present POC Glucose Blood Type Antibody Screen
[2020-06-29] MEDS ORDERED: diphenhydrAMINE Capsule 25 MG CAP PO PRN (09:46)
[2020-06-29] MEDS ORDERED: ONDANSETRON INJ 2 MG/ML 2 ML VIAL IV PRN (09:46)
[2020-06-29] MEDS ORDERED: PROMETHAZINE HCL 25 MG in SODIUM CHLORIDE 0.9% 50 ML IV PRN (09:46)
[2020-06-29] MEDS ORDERED: diphenhydrAMINE 50 MG/ML VIAL IV PRN (09:46)
[2020-06-29] MEDS: oxyCODONE/ACETAMINOPHEN 5mg/325mg TAB PO PRN ×3 (12:29→23:37)
[2020-06-29] MEDS: IBUPROFEN 600 MG TAB PO PRN ×3 (12:29→23:36)
[2020-06-29] MEDS ORDERED: bisacodyL 5 MG TABEC PO SCH (20:00)
[2020-06-30] MEDS: oxyCODONE/ACETAMINOPHEN 5mg/325mg TAB PO PRN ×5 (03:25→20:22)
[2020-06-30] MEDS: IBUPROFEN 600 MG TAB PO PRN ×5 (03:26→20:23)
[2020-06-30 06:25] LABS: Basophils # (auto) 0.02 K/uL (0-0.2); Basophils % (auto) 0.2 %; Eosinophils % (auto) 1.1 %; Hematocrit (blood only) 28.5 % (37-47); Hemoglobin 9.3 g/dL (12.0-16.0); Immature Granulocytes # (auto) 0.05 K/uL (0.00-0.02); Immature Granulocytes % (auto) 0.5 %; Lymphocytes # (auto) 1.75 K/uL (1.2-3.4); Lymphocytes % (auto) 19.1 %; Mean Corpuscular Hgb Conc 32.6 g/dL (32-36); Mean Corpuscular Volume 85.8 fL (80-100); Monocytes # (auto) 0.74 K/uL (0.11-0.59); Monocytes % (auto) 8.1 %; Platelet Count 160 K/uL (130-400); RDW Standard Deviation 46.1 fL (36.4-46.3); Red Blood Count 3.32 M/uL (4.2-5.4); White Blood Count 9.16 K/uL (4.8-10.8)
[2020-06-30] MEDS: SIMETHICONE 80 MG CHEW PO SCH ×4 (08:01→20:22)
[2020-06-30] MEDS: DOCUSATE SODIUM 100 MG CAP PO SCH ×2 (08:01→20:22)
[2020-06-30] MEDS: FERROUS SULFATE 325 MG TAB PO SCH (08:01)
[2020-06-30] MEDS: PRENATAL VITAMIN 1 TAB PO SCH (08:01)
[2020-06-30] MEDS ORDERED: MEASLES, MUMPS & RUBELLA VIRUS VIAL SQ ONE (16:15)
[2020-06-30] MEDS ORDERED: bisacodyL 10 MG SUPP PR PRN (17:13)
[2020-07-01] MEDS: oxyCODONE/ACETAMINOPHEN 5mg/325mg TAB PO PRN ×3 (04:31→12:19)
[2020-07-01] MEDS: IBUPROFEN 600 MG TAB PO PRN ×3 (04:32→12:19)
--- NOTE | 2020-07-01 08:09 | Obstetrical Progress Note ---
Date of Service July 01, 2020 Assessment & Plan Admission and Anticipated Discharge Date Admission Date: June 28, 2020 Physical Exam Physical Exam: abdomen soft and non tender incision is clean and dry no calf tenderness ambulating well vaginal bleeding scant hgb 9.3 Results & Data ([facility]) Vital Signs (Past 12 Hours) Vital Signs Temp Pulse Resp BP Pulse Ox 06/30/20 23:15 36.9 C 101 H 16 125/84 94 06/30/20 20:20 36.9 C 107 H 16 115/80 98
[2020-07-01] MEDS: SIMETHICONE 80 MG CHEW PO SCH ×2 (08:12→12:20)
[2020-07-01] MEDS: DOCUSATE SODIUM 100 MG CAP PO SCH (08:13)
[2020-07-01] MEDS: PRENATAL VITAMIN 1 TAB PO SCH (08:13)
[2020-07-01] MEDS: FERROUS SULFATE 325 MG TAB PO SCH (08:13)
--- NOTE | 2020-07-07 20:59 | Discharge Summary (DS) ---
CHIEF COMPLAINT: This is a 30-year-old G2, P1, prior section, wishes to have repeat , patient presented to labor and delivery in labor. Decision was therefore made to perform a section and tubal ligation that day. This was something she has consented to in the office on prior visits. The patient underwent repeat section to deliver a live . Weight and details is in the pediatric record. Surgery otherwise was unremarkable. The patient met all milestones in recovery on day 1 and 2. She was discharged home on 07/01/2020 in stable condition. PAST MEDICAL HISTORY: The patient has history of anxiety, depression, gestational diabetes. PAST SURGICAL HISTORY: History of cholecystectomy, tonsillectomy and prior sections. SOCIAL HISTORY: The patient is . Denies drug or alcohol use. ALLERGIES: THE PATIENT IS ALLERGIC TO WELLBUTRIN AND CLARITHROMYCIN. REVIEW OF SYSTEMS: Negative except as dictated in the HPI. PHYSICAL EXAMINATION: VITAL SIGNS: On 07/01/2020 showed temperature of 37.0, pulse of 118, blood pressure 107/72. HEART: S1, S2, regular rhythm and rate. LUNGS: Clear to auscultation bilaterally. ABDOMEN: Nontender, nondistended, positive bowel sounds. Incision clean, dry and intact. EXTREMITIES: No cyanosis, clubbing or edema. CONDITION ON DISCHARGE: Stable. OPERATION: Repeat section with bilateral tubal ligation. DISCHARGE DIAGNOSES: Postop after repeat section and tubal ligation. PLAN ON DISCHARGE: The patient is discharged home with instructions regarding activity, diet and followup appointment.
== END 2020-07-01 13:40 | disposition home or self-care (01) | DRG 785 ==
LOC: 4S1 12:31 → OPB 12:31 → 4S1 14:08 → 4S2 19:51
PROC: M.PPTLD (2020-06-28 15:00)